=== PATIENT | female | born 2000 | race Hispanic/Latino ===

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

== ENCOUNTER 2021-11-12 05:35 | Emergency (ER) | payer BC | END 2021-11-12 06:19 | disposition home or self-care (01) | LOC: BURERS 05:35 | DX: B34.9 Viral infection, unspecified (principal) | CPT/HCPCS: 99282 ==